=== PATIENT | female | born 1985 | race Caucasian/White ===

== ENCOUNTER 2019-06-12 05:13 | Day surgery (SDC) ==
[2019-06-12] MEDS ORDERED: REGLAN ONE (05:57)
[2019-06-12] MEDS ORDERED: VALIUM ONE (05:57)
[2019-06-12] MEDS ORDERED: KEFZOL 1 GM/D5W 2 GM/100 ML IVPB ONE (05:57)
[2019-06-12] MEDS ORDERED: LR 1,000 ML ONE (05:57)
[2019-06-12] MEDS ORDERED: PEPCID ONE (05:57)
[2019-06-12] MEDS ORDERED: FENTANYL ONE (06:09)
[2019-06-12] MEDS ORDERED: DIPRIVAN 1% ONE ×2 (06:09→07:22)
[2019-06-12] MEDS ORDERED: VERSED ONE (06:19)
[2019-06-12] MEDS ORDERED: MARCAINE 0.25% PF/EPI 1:200,000 ONE (06:38)
[2019-06-12] MEDS ORDERED: XYLOCAINE 1% ONE (06:38)
[2019-06-12] MEDS ORDERED: QUELICIN (DOSE) ONE (07:42)
[2019-06-12] MEDS ORDERED: DECADRON ONE (07:42)
[2019-06-12] MEDS ORDERED: ZOFRAN ONE (07:42)
[2019-06-12] MEDS ORDERED: ROBINUL ONE (07:42)
[2019-06-12] MEDS ORDERED: XYLOCAINE-MPF 2% ONE (07:42)
[2019-06-12] MEDS ORDERED: DILAUDID ONE (08:38)
[2019-06-12] MEDS: DILAUDID ONE ×3 (10:01→22:01)
[2019-06-12] MEDS: LR 1,000 ML ONE ×2 (10:28→22:02)
[2019-06-12] MEDS ORDERED: SODIUM CHLORIDE 0.9% 10 ML ONE (10:42)
[2019-06-12] MEDS ORDERED: NEO-SYNEPHRINE ONE (10:42)
[2019-06-12] MEDS ORDERED: MORPHINE IV PRN (11:18)
[2019-06-12] MEDS ORDERED: ZOFRAN IV PRN (11:18)
[2019-06-12] MEDS: NORCO-7.5 PO PRN ×2 (15:17→21:58)
[2019-06-12] MEDS: OSCAL 500 PO SCH ×2 (15:18→17:35)
[2019-06-12] MEDS: MAG-OX PO SCH (15:18)
[2019-06-12] MEDS: LR 1,000 ML IV SCH (15:19)
[2019-06-12 15:36] LABS: AGAP 14; BUN 9 mg/dL (8-22); CALCIUM 8.7 mg/dL (8.8-10.2); CHLORIDE 101 mmol/L (98-107); COSMO 278; CREATININE 0.7 mg/dL (0.5-0.9); ESTIMATED GFR > 60; GLUCOSE 134 mg/dL (70-104); POTASSIUM 4.3 mmol/L (3.5-5.1); SODIUM 139 mmol/L (136-145); TCO2 24 mmol/L (25-35)
[2019-06-12] MEDS: PERIDEX MT SCH (21:59)
--- NOTE | 2019-06-12 23:29 | OPERATIVE NOTE ---
PROCEDURE DATE: 06/12/2019 PREOPERATIVE DIAGNOSIS: Symptomatic multinodular goiter. POSTOPERATIVE DIAGNOSIS: Symptomatic multinodular goiter. PROCEDURE PERFORMED: Total thyroidectomy. FLOUR INSPECTOR: Dr. Everett was present for the entirety of the case. He facilitated exposure, resection of the very large goiter with substernal extension. DRAINS: Juan. ANESTHESIA: General. ESTIMATED BLOOD LOSS: 200 mL. SPECIMENS: 1. Left thyroid lobe. 2. Right thyroid lobe. INDICATIONS: This is a 34-year-old female who has had a longstanding multinodular goiter. Biopsies in the past have been benign. OPERATIVE FINDINGS: There was a very large inferiorly-based nodule that was complex solid cystic extending well below the clavicle. We were able to easily identify and protect the recurrent laryngeal nerve. There was at least the inferior parathyroid gland that was identified on the left. Both superior and inferior glands were identified on the right. DESCRIPTION OF PROCEDURE: Risks, benefits and alternatives were discussed with the patient and she consented for the procedure, seen preoperatively and surgical site was confirmed. She was taken to the operating room and placed in supine position. General anesthesia was induced. Her neck was extended, and her neck and chest prepped with Betadine and draped in usual fashion. After time-out, we made a transverse incision 2 fingerbreadths above the level of the clavicle through natural skin crease and carried this down through the subcutaneous tissue dividing the platysma and creating subplatysmal flaps. A self-retaining retractor was placed, divided the strap muscle in the midline, identifying the isthmus of the thyroid. We started left laterally, dissecting the strap off of the thyroid gland itself. We encircled the superior pole, divided with LigaSure device and continued our dissection inferiorly identifying some feeding veins that we divided with the LigaSure. The inferior lobe was very large and difficult to mobilize out of the bed. We did rupture the cyst and evacuated this, did provide some better exposure. Then we came medially identifying the isthmus medially and superiorly and continued our dissection around the inferior pole, which was well below the clavicle. We mobilized this up out of the bed. At this point we had established our more typical anatomy. We were able to protect the recurrent laryngeal nerve. There was a superior gland that we dissected off on its vascular pedicle. Ligament of Cowan was divided and removed the thyroid. After dividing the isthmus, passing it off. We noted hemostasis, placed a sponge here, turned our attention to the right. Strap muscles were removed. The superior pole was encircled and divided. Middle vein was divided with LigaSure device. The inferior pole was divided. The recurrent laryngeal nerve was protected along with we were able to identify the superior gland that was well away from our dissection. The inferior gland was also preserved. This side of the gland was more fibrotic and more firm, but we were able to separate it safely from recurrent laryngeal nerve and the trachea passing it off. We noted hemostasis after Valsalva maneuver. Murphy powder was placed. A Juan drain was brought out through a lateral stab incision and placed bilaterally. The strap muscles were reapproximated with 3-0 Vicryl. Platysma was reapproximated with 3-0 Vicryl. Skin was closed with 4-0 Monocryl. Dermabond was applied. She was awakened. She had no stridor. Her voice was normal. cc: Moe Callahan MD
[2019-06-13] MEDS: LR 1,000 ML IV SCH (00:09)
[2019-06-13] MEDS: NORCO-7.5 PO PRN (06:11)
[2019-06-13 07:01] LABS: AGAP 11; BUN 8 mg/dL (8-22); CALCIUM 8.4 mg/dL (8.8-10.2); CHLORIDE 101 mmol/L (98-107); COSMO 278; CREATININE 0.8 mg/dL (0.5-0.9); ESTIMATED GFR > 60; GLUCOSE 109 mg/dL (70-104); POTASSIUM 3.9 mmol/L (3.5-5.1); SODIUM 140 mmol/L (136-145); TCO2 28 mmol/L (25-35)
[2019-06-13 07:44] VITALS: BP 119/88
[2019-06-13] MEDS: MAG-OX PO SCH (08:24)
[2019-06-13] MEDS: OSCAL 500 PO SCH (08:24)
[2019-06-13] MEDS: PERIDEX MT SCH (08:24)
[2019-06-13] MEDS ORDERED: PRILOSEC PO SCH (09:00)
--- NOTE | 2019-06-13 20:20 | GENERAL SURGERY PROGRESS NOTE ---
DATE: 06/13/2019 Ms. Henriquez is doing fine this morning. She is afebrile, heart rate 78, blood pressure 119/88. She says she can tell that she is swallowing better and breathing better. Her drainage is serosanguineous. She had 70 mL output. PHYSICAL EXAMINATION: Her wound looks fine. Her Chvostek's sign is negative. LABORATORY DATA: Her laboratory data reveals a calcium of 8.4 this morning. PLAN: The plan will be to remove her drain and discharge her and I will write her something for pain. She knows to take a TUMS if she gets symptomatic with perioral numbness or hand cramps. cc: MD Moe Lopes MD
== END 2019-06-13 10:47 | disposition home or self-care (01) ==
LOC: 4N 05:13 → PAT 05:13 → OPS 05:13
PROVIDERS: ATTEND Surgery
PROC: GE.THYR (2019-06-12 07:17)